=== PATIENT | female | born 1965 | race Caucasian/White ===

== ENCOUNTER 2017-12-12 21:29 | Emergency (ER) | payer OTHER, MEDICAID ==
--- NOTE | 2017-12-12 22:26 | ED Physician Chart ---
ED Chief Complaint/HPI - Patient Information Date Seen:: 12/12/17 Time Seen:: 22:25 Chief Complaint:: Headache History of Present Illness:: 52 yo female was brought from [facility] to ER for evaluation of headache and left frontal abrasions s/p fall and head trauma 6 days ago. She also complained left thumb and wrist pain. The patient stated that she had ingested alcohol prior to the fall. Allergies:: Allergies Allergy/AdvReac Type Severity Reaction Status Date / Time No Known Allergies Allergy Verified 12/12/17 21:46 Vitals:: Vital Signs - 8 hr 12/12/17 21:35 Temp 96.5 F HR 66 RR 18 BP 122/74 O2 Sat % 97 ED Review of Systems - Review of Systems General/Constitutional: No fever Skin: Skin lesions Head: Headache Eyes: No loss of vision ENT: No earache Neck: No neck pain Cardio Vascular: No chest pain Pulmonary: No SOB GI: Nausea Musculoskeletal: Bone or joint pain ED Past Medical History - Past Medical History Past Medical History: Other (Chronic pain, peripheral neuropathy) Social History: Alcohol Psychiatricy History: Depression, Other (alcohol abuse) Family Medical History - Family Member Mother History Unknown: Yes ED Physical Exam - Physical Examination General/Constitutional: Awake, Alert Other Head comments:: Left frontal abrasion, left periorbital ecchymosis Eyes: PERRL ENMT: Nasal exam nl Neck: No nuchal rigidity Respiratory: No Wheeze/Rhonchi/Rales Cardio Vascular: RRR, No murmur, gallop, rubs, NL S1 S2 GI: No tenderness/rebounding/guarding Other Extremities comments:: Tenderness left thumb and wrist with painful ROM Neuro/Psych: No focal deficits ED Labs/Radiology/EKG Results - Radiology Results Results: CT head: no acute intracranial hemorrhage, no fracture, chronic ischemic small vessel white matter disease Left hand X ray: no clear fracture or dislocation ED Assessment - Assessment General Assessment: Left frontal abrasion and hematoma Left thumb and wrist pain Assessment/Comments:: CT head without contrast Left hand X ray Tylenol Toradol D/c to [facility] ED Septic Shock - . Is Septic Shock (SBP<90, OR Lactate>4 mmol\L) present?: No - <6hrs of presentation: Vital Signs: Vital Signs - 8 hr 12/12/17 21:35 Temp 96.5 F HR 66 RR 18 BP 122/74 O2 Sat % 97 ED Reassessment (Disposition) - Reassessment Reassessment Condition:: Improved - Patient Disposition Discharge/Transfer:: [facility] - [facility] ED Discharge Plan - Patient Disposition Admit/Discharge/Transfer: PT DISCHARGED HOME Condition at Disposition: Improved Instructions: Contusion
--- NOTE | 2017-12-13 09:08 | Diagnostic Imaging Report ---
Left hand 2 limited views Indication: Left thumb and left wrist pain Comparison: none Findings: Mild degenerative changes are seen. There are slight nonspecific angulation of the fifth DIP joint. There is a 3 mm ossicle along the lateral aspect of the first metacarpophalangeal joint. No evidence of an acute fracture. A physeal scar of the distal radius is noted. No significant focal soft tissue swelling. No dislocation. Impression: No evidence of an acute fracture. 3 mm ossicle adjacent to the first metacarpophalangeal joint. This may represent an excessive ossicle or may be due to posttraumatic or previous degenerative etiology. Please correlate with clinical findings. Mild degenerative changes. In the setting of trauma, if clinical symptoms persist and there is continued concern for an occult fracture, follow up exams in 5-7 days is suggested.
--- NOTE | 2017-12-13 09:20 | Diagnostic Imaging Report ---
Head CT without intravenous contrast Indication: trauma, headache Comparison: None Technique: Axial images were obtained from the vertex to the skull base without IV contrast. Coronal reconstructions were made. Total DLP: [id number], [id number] FINDINGS: Images of the brain obtained without contrast demonstrate no evidence of an acute hemorrhage. Minimal white matter disease is noted. The ventricles and basal cisterns are patent. No mass effect or midline shift. No evidence of the skull fracture. There is soft tissue swelling of the left forehead. The visualized paranasal sinuses demonstrate minimal mucosal thickening. IMPRESSION: Left forehead soft tissue swelling. No evidence of a skull fracture. No evidence of an acute intracranial hemorrhage. Minimal white matter disease which is nonspecific and may be due to chronic microvessel ischemia.
== END 2017-12-13 01:00 | disposition home or self-care (01) ==
LOC: ER 21:29
DX: R51 Headache (principal); M79.645 Pain in left finger(s); M25.532 Pain in left wrist
CPT/HCPCS: 99284; 96372; 73120; 70450; 81025; J1885; Z7502; Z7610